=== PATIENT | male | born 2000 | race Caucasian/White ===

== ENCOUNTER 2024-10-02 16:24 | Emergency (ER) | payer OTHER ==
[~2024-10-02] VITALS: Ht 180.3 cm; Wt 77.0 kg
[2024-10-02 16:31] VITALS: O2SAT 98
[2024-10-02] MEDS: DIPHENHYDRAMINE 25MG CAPSULE PO ONE (17:03)
[2024-10-02] MEDS: FAMOTIDINE 20MG TABLET PO ONE (17:03)
[2024-10-02] MEDS: DEXAMETHASONE 4MG TABLET PO ONE (17:04)
[2024-10-02] MEDS ORDERED: CLIN-116 MT (18:00)
[2024-10-02 18:29] VITALS: BP 119/84; PULSE 89; RESP 16; TEMP 36.6; O2SAT 98
== END 2024-10-02 18:30 | disposition home or self-care (01) ==
LOC: ER 16:24
DX: K04.7 Periapical abscess without sinus (principal); Z79.2 Long term (current) use of antibiotics; Z79.52 Long term (current) use of systemic steroids
CPT/HCPCS: 99284; J8540; Q0163